=== PATIENT | male | born 1965 | race Caucasian/White ===

== ENCOUNTER 2018-09-03 18:46 | Emergency (ER) | payer SELFPAY ==
--- NOTE | 2018-09-03 19:31 | ER Document Report ---
ED General - General Chief Complaint: High Blood Pressure Stated Complaint: HEADACHE/BLOOD PRESSURE ISSUE Time Seen by Provider: 09/03/18 19:20 Mode of Arrival: Ambulatory Information source: Patient Notes: 53-year-old male presents emergency department with complaints of hypertension. Patient states that he is here from out of town. He ran out of his metoprolol. He states that he did not take any medication today for his hypertension. He began having a headache this morning. He states that it is at the temples and behind his eyes. He states that it is a throbbing sensation. He states that it is getting better. He states that it is just mild at this time. He denies any vision changes, speech changes, numbness, tingling, weakness, chest pain, shortness of breath, abdominal pain. Patient does not want treatment for his headache. Patient states that he just wants a prescription for the metoprolol and a work note. TRAVEL OUTSIDE OF THE [place] IN LAST 30 DAYS: No - HPI Onset: This morning Onset/Duration: Gradual Quality of pain: Throbbing Severity: Mild Associated symptoms: Nausea Exacerbated by: Denies Relieved by: Denies Similar symptoms previously: Yes Recently seen / treated by doctor: No - Related Data Allergies/Adverse Reactions: hydromorphone [From Dilaudid] Allergy (Verified 09/03/18 18:51) Penicillins Allergy (Verified 09/03/18 18:51) Past Medical History - General Information source: Patient - Social History Smoking Status: Current Every Day Smoker Chew tobacco use (# tins/day): No Frequency of alcohol use: None Drug Abuse: None Family History: Reviewed & Not Pertinent Patient has suicidal ideation: No Patient has homicidal ideation: No Renal/ Medical History: Denies: Hx Peritoneal Dialysis Review of Systems - Review of Systems Constitutional: No symptoms reported EENT: No symptoms reported Cardiovascular: No symptoms reported Respiratory: No symptoms reported Gastrointestinal: Nausea Genitourinary: No symptoms reported Male Genitourinary: No symptoms reported Musculoskeletal: No symptoms reported Skin: No symptoms reported Hematologic/Lymphatic: No symptoms reported Neurological/Psychological: Headaches Physical Exam - Vital signs Vitals: Temp Pulse Resp BP Pulse Ox 98.8 F 117 H 18 146/101 H 95 09/03/18 18:52 09/03/18 18:52 09/03/18 18:52 09/03/18 18:52 09/03/18 18:52 - General Notes: PHYSICAL EXAMINATION: GENERAL: Well-appearing, well-nourished and in no acute distress. HEAD: Atraumatic, normocephalic. EYES: Pupils equal round and reactive to light, extraocular movements intact, sclera anicteric, conjunctiva are normal. ENT: Nares patent, oropharynx clear without exudates. Moist mucous membranes. NECK: Normal range of motion, supple without lymphadenopathy LUNGS: Breath sounds clear to auscultation bilaterally and equal. No wheezes rales or rhonchi. HEART: Regular rate and rhythm without murmurs Musculoskeletal: Normal range of motion, no pitting or edema. No cyanosis. NEUROLOGICAL: Cranial nerves grossly intact. Normal speech, normal gait. Normal sensory, motor exams PSYCH: Normal mood, normal affect. SKIN: Warm, Dry, normal turgor, no rashes or lesions noted. Course - Re-evaluation Re-evalutation: 09/03/18 19:30 Repeat vitals obtained. Blood pressures reducing. Patient still tachycardic. He states that he drank a [employer] energy drink prior to arrival. I told patient we can give him some IV fluids and some IV medications to help with his headache. Patient declines any medications. Patient states that he just wants to be discharged home. As the patient is still tachycardic I told him he would have to leave AGAINST MEDICAL ADVICE. Patient is capable of making decisions. Patient understands the risks of leaving AGAINST MEDICAL ADVICE. He understands that his condition may worsen or he may . - Vital Signs Vital signs: Temp Pulse Resp BP Pulse Ox 98.8 F 114 H 16 128/95 H 100 09/03/18 18:52 09/03/18 19:36 09/03/18 19:36 09/03/18 19:36 09/03/18 19:36 Discharge - Discharge Clinical Impression: Hypertension Qualifiers: Hypertension type: unspecified Qualified Code(s): I10 - Essential (primary) hypertension Condition: Good Disposition: HOME, SELF-CARE Instructions: High Blood Pressure ([facility]) Prescriptions: Metoprolol Succinate 50 mg PO BID #10 [id number].er.[id number] Forms: Return to Work Referrals: BALDEMAR CALABRESE MD [ACTIVE STAFF] - Follow up as needed
[2018-09-03 19:37] VITALS: BP 128/95
== END 2018-09-03 19:37 | disposition left against medical advice (07) ==
LOC: ER 18:46
DX: I10 Essential (primary) hypertension (principal); R51 Headache; F17.200 Nicotine dependence, unspecified, uncomplicated
CPT/HCPCS: 99283